=== PATIENT | female | born 1975 | race African-American/Black ===

== ENCOUNTER 2018-09-01 15:31 | Emergency (ER) | payer MEDICAID, OTHER ==
[~2018-09-01] VITALS: Ht 165.1 cm; Wt 66.4 kg
[~2018-09-01 15:31] MED LIST: HYDROCODONE
[2018-09-01 15:42] VITALS: BP 119/79
--- NOTE | 2018-09-01 16:05 | NUR ---
PT HERE FOR LOWER RIGHT FIBULA TENDERNESS. PT GIVEN ICE PACK.
--- NOTE | 2018-09-01 16:24 | NUR ---
PT MEDICATED PER EMAR.
--- NOTE | 2018-09-01 16:25 | NUR ---
Patient/Caregiver given discharge instructions and they have confirmed that they understand the instructions. Patient ambulatory with steady gait.
== END 2018-09-01 16:26 | disposition home or self-care (01) ==
LOC: ED 16:10
DX: L03.115 Cellulitis of right lower limb (principal); F17.200 Nicotine dependence, unspecified, uncomplicated
CPT/HCPCS: 99283

== ENCOUNTER 2019-11-02 15:34 | Emergency (ER) | payer MEDICAID, OTHER ==
[~2019-11-02] VITALS: Ht 162.6 cm; Wt 68.0 kg
[2019-11-02] MEDS ORDERED: HYDROcodone/APAP 5/325 TABLET PO ONE (17:00)
[2019-11-02] MEDS ORDERED: HYDROcodone/APAP 5/325 TABLET ONE (17:06)
--- NOTE | 2019-11-02 17:11 | NUR ---
PT MEDICATED PER ERP ORDER FOR 8/10 TAILBONE PAIN. VSS/UPDATED IN COMPUTER. CALL LIGHT WITHIN REACH.
[2019-11-02 17:12] VITALS: BP 93/62
--- NOTE | 2019-11-02 17:48 | NUR ---
PT SLEEPING, PAIN IMPROVED. XR READ BACK, PT FOR RECHECK.
== END 2019-11-02 18:22 | disposition home or self-care (01) ==
LOC: ED 18:00
DX: S30.0XXA Contusion of lower back and pelvis, initial encounter (principal); F17.200 Nicotine dependence, unspecified, uncomplicated; W19.XXXA Unspecified fall, initial encounter; Y93.51 Activity, roller skating (inline) and skateboarding; Y92.488 Other paved roadways as the place of occurrence of the external cause; Y99.8 Other external cause status
CPT/HCPCS: 72220; 99283

== ENCOUNTER 2020-05-02 11:32 | Emergency (ER) | payer OTHER ==
[~2020-05-02] VITALS: Ht 165.1 cm; Wt 63.6 kg
[2020-05-02 11:44] VITALS: BP 108/67
== END 2020-05-02 13:27 | disposition home or self-care (01) ==
LOC: ED 13:25
DX: S93.402A Sprain of unspecified ligament of left ankle, initial encounter (principal); X58.XXXA Exposure to other specified factors, initial encounter; Y93.89 Activity, other specified; Y92.098 Other place in other non-institutional residence as the place of occurrence of the external cause; Y99.8 Other external cause status
CPT/HCPCS: 99284